=== PATIENT | male | born 1990 | race Caucasian/White ===

== ENCOUNTER 2016-07-13 22:31 | Inpatient (IN) | payer BC, OTHER ==
[2016-07-13] MEDS ORDERED: Sodium Chloride 0.9% 1,000 ML IV ONE (22:37)
[2016-07-13] MEDS ORDERED: Albuterol-Ipratrop 3 mg / 0.5 (3 ml) UD INH STA ×2 (22:38→22:39)
[2016-07-13] MEDS ORDERED: Magnesium Sulfate 1 gm in D5W 1 GM/100 ML BAG IVPB ONE ×2 (22:44→23:30)
[2016-07-13] MEDS: Magnesium Sulfate 1 gm in D5W 1 GM/100 ML BAG IV SCH ×2 (22:59→23:34)
[2016-07-13] MEDS ORDERED: Albuterol-Ipratrop 3 mg / 0.5 (3 ml) UD ONE (23:01)
[2016-07-13] MEDS ORDERED: Sodium Chloride 0.9% 1,000 ML ONE (23:14)
[2016-07-13 23:27] LABS: BASO % 0.1 % (0.0-2.0); LYMPH # 0.6 K/uL (1.0-4.3); LYMPH % 6.5 % (20.0-40.0); MEAN CELL VOLUME 86.2 fL (80.0-94.0); MEAN CORPUSCULAR HEMOGLOBIN 29.3 pg (27.0-31.0); MEAN PLATELET VOLUME 7.6 fL (7.2-11.7); MONO # 0.2 K/uL (0.0-0.8); MONO % 1.8 % (0.0-10.0); PLATELET COUNT 305 K/uL (130-400); RED CELL DISTRIBUTION WIDTH 12.9 % (11.5-14.5); WHITE BLOOD COUNT 9.1 K/uL (4.8-10.8)
--- NOTE | 2016-07-13 23:31 | C.PDOC ---
History Of Present Illness Patient BIBA for respiratory distresss, has h/o asthma, given neb treatment in the field. As per patient and EMS, he was at [facility] earlier today, given solumedrol at the time. He was worked up there, had CXR & blood work done, discharged home with Rx for prednisone. He admits to nonproductive cough, denies fever, chest pain, palpitations, abdominal pain, nausea/vomiting. He also denies h/o intubations. Time Seen by Provider: 07/13/16 22:37 Chief Complaint (Nursing): Respiratory Distress History Per: Patient, EMS History/Exam Limitations: clinical condition Onset/Duration Of Symptoms: Hrs Current Symptoms Are (Timing): Still Present Current Respiratory Medications: See Home Med List Severity: Moderate Past Medical History Reviewed: Historical Data, Nursing Documentation, Vital Signs Vital Signs: Last Vital Signs Temp 98.3 F 07/13/16 22:40 Pulse 121 H 07/14/16 03:25 Resp 22 07/14/16 03:25 BP 135/70 07/14/16 02:01 Pulse Ox 95 07/14/16 05:24 - Medical History PMH: Asthma Family History: States: No Known Family Hx - Social History Hx Tobacco Use: No Hx Alcohol Use: No Hx Substance Use: No - Immunization History Hx Tetanus Toxoid Vaccination: No Hx Influenza Vaccination: No Hx Pneumococcal Vaccination: No Review Of Systems Except As Marked, All Systems Reviewed And Found Negative. Constitutional: Negative for: Fever, Chills Cardiovascular: Negative for: Chest Pain, Palpitations Respiratory: Positive for: Cough, Shortness of Breath, Wheezing Gastrointestinal: Negative for: Nausea, Vomiting, Abdominal Pain, Diarrhea Physical Exam - Physical Exam Appears: Non-toxic, In Acute Distress (in moderate respiratory distress), Other (speaking 1-2 words at a time) Skin: Normal Color, Warm, Dry Eye(s): bilateral: Normal Inspection Oral Mucosa: Moist Chest: Symmetrical Cardiovascular: Rhythm Regular (tachycardic ) Respiratory: Accessory Muscle Use (mild), No Rales, No Rhonchi, Wheezing ( diffuse expiratory wheezing B/L) Gastrointestinal/Abdominal: Normal Exam, Bowel Sounds, Soft, No Tenderness Extremity: Normal ROM, No Pedal Edema, No Calf Tenderness Pulses: Left Dorsalis Pedis: Normal, Right Dorsalis Pedis: Normal Neurological/Psych: Oriented x3 ED Course And Treatment - Laboratory Results Result Diagrams: 07/13/16 23:13 07/13/16 23:13 ECG: Interpreted By Me, Viewed By Me (sinus tachycardis 132 bpm, normal axis, no acute ST/T wave changes) ECG Interpretation: Abnormal O2 Sat by Pulse Oximetry: 95 (RA) Pulse Ox Interpretation: Normal - Radiology CXR: Interpreted by Me, Viewed By Me (no infiltrates/effusions) Progress Note: Patient placed on monitor worker, given duoneb treatments, IV magnesium sulfate 2G, and SC Terbutaline emergently. Blood work, CXR, EKG, ABG ordered and reviewed. Reevaluation Time: 01:15 Reassessment Condition: Improved (Patient reassessed, states he is feeling better, but still wheezing with Pox of 92-93% and poor peak flow (appros 200). Will need admission.) - Physician Consult Information Physician Contacted: Roge Davison Jr. Outcome Of Conversation: Dr. Davison notified of asthma exacerbation admission to telemetry. Medicine resident also notified. Critical Care Time - Critical Care Note Total Time (in mins): 45 Documented critical care: time excludes all time spent performing seperately billable procedures. Medical Decision Making Medical Decision Making: differentialk diagnoses considered: asthma exacerbation, pneumonia, bronchitis, PE, WI/ACS, COPD, CHF Disposition - Disposition Disposition: HOSPITALIZED Disposition Time: 01:26 Condition: FAIR - Clinical Impression Clinical Impression: Exacerbation of asthma Decision To Admit - Pt Status Changed To: Hospital Disposition Of: Inpatient - Admit Certification Admit to Inpatient:: After my assessment, the patient will require hospitalization for at least two midnights. This is because of the severity of symptoms shown, intensity of services needed, and/or the medical risk in this patient being treated as an outpatient. - InPatient: Physician Admission Certification: I certify that this patient requires 2 or more midnights of care for the following reason:: see notes - . Bed Request Type: Telemetry Admitting Physician: Roge Davison Jr. Patient Diagnosis: Exacerbation of asthma
[2016-07-13 23:38] LABS: CHLORIDE 103 mmol/L (98-107)
[2016-07-13 23:39] LABS: POTASSIUM 3.9 mmol/L (3.6-5.2); SODIUM 142 mmol/L (132-148)
[2016-07-13 23:41] LABS: ALB/GLOB RATIO 1.5 (1.0-2.1); ALKALINE PHOSPHATASE 65 U/L (38-126); AST/SGOT 19 U/L (17-59); BILIRUBIN,TOTAL 0.8 mg/dL (0.2-1.3); BLOOD UREA NITROGEN 17 mg/dL (9-20); CARBON DIOXIDE 19 mmol/L (22-30); GFR AFRICAN-AMERICAN > 60; GLUCOSE,RANDOM 129 mg/dL (75-110); TOTAL PROTEIN 7.8 g/dL (6.3-8.3)
[2016-07-13 23:42] LABS: ALT/SGPT 19 U/L (21-72); CALCIUM 9.1 mg/dl (8.6-10.4)
[2016-07-13] MEDS ORDERED: Albuterol 0.083% Inhal Sol (2.5 mg/3 mL) UD IH STA (23:52)
[2016-07-14] MEDS ORDERED: Albuterol 0.083% Inhal Sol (2.5 mg/3 mL) UD IH STA (00:01)
[2016-07-14 00:25] LABS: NEUTROPHIL 91 % (50-75); TOTAL CELLS COUNTED 100
[2016-07-14] MEDS ORDERED: Albuterol 0.083% Inhal Sol (2.5 mg/3 mL) UD ONE (01:43)
[2016-07-14] MEDS: Albuterol-Ipratrop 3 mg / 0.5 (3 ml) UD IH SCH ×8 (01:48→20:10)
--- NOTE | 2016-07-14 02:28 | CP.PCM.HP ---
History of Present Illness - History of Present Illness History of Present Illness: CC: wheezing with dyspnea HPI: 25 year old male with PMHx significant for asthma presents with chief complaint of increased shortness of breath with productive cough and wheezing which first began two days ago on . Patient states that his asthma is usually well controlled requiring minimal use of his albuterol inhaler; however he has increased the frequency of use since . Patient states that his fiancee has been sick. 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 Patient states that his cough also began two days ago. The cough is productive with greenish sputum. He actually went to [facility] earlier in the day and was evaluated. There a chest xray was taken. He was administered a duoneb treatment, given steroids and monitored. Patient states that he felt well enough to leave but then the wheezing started again. Patient is accompanied by tashae bedside. He admits to fevers and nausea. He denies chills, dizziness, vomiting, diarrhea, constipation , leg pain or chest pain at this time. PMHx- Asthma PSHx- denies Fam Hx-maternal grandmother has diabetes; both grandmothers have asthma Meds:Albuterol pump, nebulizer treatment at home. Patient was administered prednisone from [facility] Social- drinks on rare occasion. He occasionally will smoke one cigarette when he drinks in the company of others. He smoked last year; denies illicit drug use; social worker school Allergies- kiwi causes itching; seasonal PMD: Dr. Evin Hanna of [facility] In the ED: a chest xray was taken; patient administered duonebs, terbutaline, mag sulfate; abg and labs taken. Present on Admission - Present on Admission Any Indicators Present on Admission: No Review of Systems - Constitutional Constitutional: absent: Anorexia, Chills - EENT Eyes: absent: Blind Spots, Blurred Vision, Change in Vision Ears: absent: Decreased Hearing, Ear Discharge Nose/Mouth/Throat: Nasal Congestion - Cardiovascular Cardiovascular: absent: Chest Pain, Chest Pain at Rest - Respiratory Respiratory: Cough, Wheezing, Change in Mucous Color. absent: Hemoptysis - Gastrointestinal Gastrointestinal: Nausea. absent: Abdominal Pain, Belching, Vomiting - Musculoskeletal Musculoskeletal: absent: Atrophy, Back Pain - Integumentary Integumentary: absent: Change in Hair, Dry Skin - Neurological Neurological: absent: Abnormal Gait, Abnormal Hearing - Psychiatric Psychiatric: absent: Anhedonia, Anxiety - Endocrine Endocrine: absent: Change in Body Appearance, Excessive Sweating - Hematologic/Lymphatic Hematologic: absent: Easy Bleeding, Easy Bruising Past Patient History - Past Medical History & Family History Past Medical History?: Yes - Past Social History Smoking Status: smokes one cigarette every once in a while with alcohol intake - CARDIAC Hx Cardiac Disorders: No - PULMONARY Hx Asthma: Yes - NEUROLOGICAL Hx Neurological Disorder: No - HEENT Hx HEENT Problems: No - RENAL Hx Chronic Kidney Disease: No - ENDOCRINE/METABOLIC Hx Endocrine Disorders: No - HEMATOLOGICAL/ONCOLOGICAL Hx Blood Disorders: No - INTEGUMENTARY Hx Dermatological Problems: No - MUSCULOSKELETAL/RHEUMATOLOGICAL Hx Musculoskeletal Disorders: No Hx Falls: No - GASTROINTESTINAL Hx Gastrointestinal Disorders: No - GENITOURINARY/GYNECOLOGICAL Hx Genitourinary Disorders: No - PSYCHIATRIC Hx Substance Use: No - SURGICAL HISTORY Hx Surgeries: No - ANESTHESIA Hx Anesthesia: No Hx Anesthesia Reactions: No Hx Malignant Hyperthermia: No Meds Allergies/Adverse Reactions: Allergies Allergy/AdvReac Type Severity Reaction Status Date / Time No Known Allergies Allergy Verified 09/04/14 16:53 Physical Exam - Constitutional Appears: Non-toxic, No Acute Distress - Head Exam Head Exam: ATRAUMATIC, NORMAL INSPECTION, NORMOCEPHALIC - Eye Exam Eye Exam: EOMI, Normal appearance, PERRL Pupil Exam: NORMAL ACCOMODATION, PERRL - ENT Exam ENT Exam: Mucous Membranes Moist, Normal Exam - Neck Exam Neck exam: Positive for: Full Rom - Respiratory Exam Respiratory Exam: Wheezes. absent: Decreased Breath Sounds, Respiratory Distress - Cardiovascular Exam Cardiovascular Exam: Tachycardia, REGULAR RHYTHM, +S1, +S2 - GI/Abdominal Exam GI & Abdominal Exam: Normal Bowel Sounds, Soft. absent: Tenderness - Extremities Exam Extremities exam: Positive for: full ROM, normal capillary refill, normal inspection, pedal pulses present - Back Exam Back exam: FULL ROM - Neurological Exam Neurological exam: Alert, CN II-XII Intact, Oriented x3, Reflexes Normal - Psychiatric Exam Psychiatric exam: Normal Affect, Normal Mood - Skin Skin Exam: Dry, Intact, Normal Color Results - Vital Signs Recent Vital Signs: Last Vital Signs Temp 98.3 F 07/13/16 22:40 Pulse 125 H 05/06/17 02:01 Resp 29 H 07/14/16 02:01 BP 135/70 07/14/16 02:01 Pulse Ox 95 07/14/16 02:17 - Labs Result Diagrams: 07/13/16 23:13 07/13/16 23:13 Assessment & Plan (1) Asthma exacerbation Assessment and Plan: Chest Xray- no apparent infiltrates noted- F/U final read Prednisone 20 mg PO BID Duonebs Oxygen PRN Oxygen saturation WNL Sinus tach on EKG likely due to albuterol administration. Otherwise stable Status: Acute (2) Cough Assessment and Plan: Robitussin DM Cont to monitor F/U AM labs F/U sputum cultures, blood cultures and gram stain Status: Acute (3) Prophylactic measure Assessment and Plan: SCDs Ambulates Status: Acute
[2016-07-14 06:29] LABS: HEMATOCRIT 41.4 % (35.0-51.0); LYMPH # 1.1 K/uL (1.0-4.3); MEAN CELL VOLUME 87.5 fL (80.0-94.0); MEAN CORPUSCULAR HEMOGLOBIN 29.4 pg (27.0-31.0); MEAN CORPUSCULAR HGB CONC 33.6 g/dL (33.0-37.0); MEAN PLATELET VOLUME 7.8 fL (7.2-11.7); MONO # 0.8 K/uL (0.0-0.8); MONO % 5.7 % (0.0-10.0); PLATELET COUNT 290 K/uL (130-400); RED CELL DISTRIBUTION WIDTH 13.1 % (11.5-14.5); WHITE BLOOD COUNT 13.3 K/uL (4.8-10.8)
[2016-07-14 06:39] LABS: CHLORIDE 106 mmol/L (98-107); SODIUM 142 mmol/L (132-148)
[2016-07-14 06:40] LABS: POTASSIUM 3.8 mmol/L (3.6-5.2)
[2016-07-14 06:42] LABS: CARBON DIOXIDE 21 mmol/L (22-30); GFR AFRICAN-AMERICAN > 60
[2016-07-14 06:43] LABS: BLOOD UREA NITROGEN 14 mg/dL (9-20); CALCIUM 8.4 mg/dl (8.6-10.4); GLUCOSE,RANDOM 124 mg/dL (75-110)
[2016-07-14 07:25] LABS: MAGNESIUM 2.4 mg/dL (1.6-2.3); PHOSPHOROUS 3.4 mg/dL (2.5-4.5)
[2016-07-14 10:53] LABS: NEUTROPHIL 87 % (50-75); TOTAL CELLS COUNTED 100
[2016-07-14 10:55] LABS: LARGE PLATELETS PRESENT
[2016-07-14] MEDS: guaiFENesin DM 100 mg-10 mg/5 ml UD PO PRN (11:40)
--- NOTE | 2016-07-14 12:42 | RAD ---
PROCEDURE: CHEST RADIOGRAPH, 1 VIEW. Portable study 22:40. HISTORY: SOB COMPARISON: 05/30/2015. FINDINGS: LUNGS: Resolution of previously identified right upper lobe infiltrate. PLEURA: No pneumothorax or pleural fluid seen. CARDIOVASCULAR: Normal. OSSEOUS STRUCTURES: No significant abnormalities. VISUALIZED UPPER ABDOMEN: Normal. OTHER FINDINGS: None. IMPRESSION: No active disease. Concordant results with the preliminary interpretation rendered by the emergency department physician procedure.
[2016-07-15] MEDS: Albuterol-Ipratrop 3 mg / 0.5 (3 ml) UD IH SCH ×5 (00:59→16:07)
[2016-07-15 08:25] VITALS: TEMP 98; O2SAT 95
[2016-07-15 08:38] LABS: BASO % 0.2 % (0.0-2.0); EOS % 0.2 % (0.0-4.0); HEMATOCRIT 45.1 % (35.0-51.0); LYMPH # 2.1 K/uL (1.0-4.3); LYMPH % 19.8 % (20.0-40.0); MEAN CORPUSCULAR HEMOGLOBIN 29.7 pg (27.0-31.0); MEAN CORPUSCULAR HGB CONC 34.2 g/dL (33.0-37.0); MEAN PLATELET VOLUME 7.6 fL (7.2-11.7); MONO # 0.6 K/uL (0.0-0.8); MONO % 5.4 % (0.0-10.0); NRBC % 0.1 % (0.0-2.0); RED CELL DISTRIBUTION WIDTH 13.3 % (11.5-14.5); WHITE BLOOD COUNT 10.7 K/uL (4.8-10.8)
[2016-07-15] MEDS: guaiFENesin DM 100 mg-10 mg/5 ml UD PO PRN (08:41)
[2016-07-15 08:46] LABS: CHLORIDE 98 mmol/L (98-107)
[2016-07-15 08:47] LABS: SODIUM 140 mmol/L (132-148)
[2016-07-15 08:49] LABS: GFR AFRICAN-AMERICAN > 60
[2016-07-15 08:50] LABS: BLOOD UREA NITROGEN 15 mg/dL (9-20); CARBON DIOXIDE 22 mmol/L (22-30); GLUCOSE,RANDOM 92 mg/dL (75-110)
[2016-07-15 18:36] VITALS: PULSE 109
[2016-07-15 18:37] VITALS: BP 120/72; RESP 16
--- NOTE | 2016-07-15 20:12 | CP.PCM.DIS ---
Provider - Provider Date of Admission: 07/14/16 01:26 Attending physician: Roge Davison Jr, MD Time Spent in preparation of Discharge (in minutes): 35 Diagnosis - Discharge Diagnosis (1) Asthma exacerbation Status: Acute Hospital Course - Lab Results Lab Results: Micro Results 07/14/16 19:00 Sputum Gram Stain - Final Most Recent Lab Values WBC 10.7 K/uL (4.8-10.8) 07/15/16 08:26 RBC 5.18 Mil/uL (4.40-5.90) 07/15/16 08:26 Hgb 15.4 g/dL (12.0-18.0) 07/15/16 08:26 Hct 45.1 % (35.0-51.0) 07/15/16 08:26 MCV 87.0 fL (80.0-94.0) 07/15/16 08:26 MCH 29.7 pg (27.0-31.0) 07/15/16 08:26 MCHC 34.2 g/dL (33.0-37.0) 07/15/16 08:26 RDW 13.3 % (11.5-14.5) 07/15/16 08:26 Plt Count 301 K/uL (130-400) 07/15/16 08:26 MPV 7.6 fL (7.2-11.7) 07/15/16 08:26 Neut % (Auto) 74.4 % (50.0-75.0) 07/15/16 08:26 Lymph % (Auto) 19.8 % (20.0-40.0) L 07/15/16 08:26 [place] % (Auto) 5.4 % (0.0-10.0) 07/15/16 08:26 Eos % (Auto) 0.2 % (0.0-4.0) 07/15/16 08:26 Baso % (Auto) 0.2 % (0.0-2.0) 07/15/16 08:26 Neut # 7.9 K/uL (1.8-7.0) H 07/15/16 08:26 Lymph # 2.1 K/uL (1.0-4.3) 07/15/16 08:26 [place] # 0.6 K/uL (0.0-0.8) 07/15/16 08:26 Eos # 0.0 K/uL (0.0-0.7) 07/15/16 08:26 Baso # 0.0 K/uL (0.0-0.2) 07/15/16 08:26 Neutrophils % (Manual) 87 % (50-75) H 07/14/16 06:19 Lymphocytes % (Manual) 8 % (20-40) L 07/14/16 06:19 Monocytes % (Manual) 5 % (0-10) 07/14/16 06:19 Toxic Granulation Present 07/14/16 06:19 Platelet Estimate Normal (NORMAL) 07/14/16 06:19 Large Platelets Present 07/14/16 06:19 Polychromasia Slight 07/14/16 06:19 Hypochromasia (manual) Slight 07/14/16 06:19 Anisocytosis (manual) Slight 07/14/16 06:19 Sodium 140 mmol/L (132-148) 07/15/16 08:26 Potassium 4.0 mmol/L (3.6-5.2) 07/15/16 08:26 Chloride 98 mmol/L (98-107) 07/15/16 08:26 Carbon Dioxide 22 mmol/L (22-30) 07/15/16 08:26 Anion Gap 24 (10-20) H 07/15/16 08:26 BUN 15 mg/dL (9-20) 07/15/16 08:26 Creatinine 0.8 MG/DL (0.8-1.5) 07/15/16 08:26 Est GFR ( Amer) > 60 07/15/16 08:26 Est GFR (Non-Af Amer) > 60 07/15/16 08:26 POC Glucose (mg/dL) 152 mg/dL (65-110) H 07/13/16 23:39 Random Glucose 92 mg/dL (75-110) 07/15/16 08:26 Calcium 9.0 mg/dl (8.6-10.4) 07/15/16 08:26 Phosphorus 3.4 mg/dL (2.5-4.5) 07/14/16 06:19 Magnesium 2.4 mg/dL (1.6-2.3) H 07/14/16 06:19 Total Bilirubin 0.8 mg/dL (0.2-1.3) 07/13/16 23:13 AST 19 U/L (17-59) 07/13/16 23:13 ALT 19 U/L (21-72) L D 07/13/16 23:13 Alkaline Phosphatase 65 U/L (38-126) 07/13/16 23:13 Total Protein 7.8 g/dL (6.3-8.3) 07/13/16 23:13 Albumin 4.7 g/dL (3.5-5.0) 07/13/16 23:13 Globulin 3.1 gm/dL (2.2-3.9) 07/13/16 23:13 Albumin/Globulin Ratio 1.5 (1.0-2.1) 07/13/16 23:13 Influenza Typ A,B (EIA) Negative for flu a/b (NEGATIVE) 07/14/16 07:15 - Hospital Course Hospital Course: 25 year old male with PMHx significant for asthma presents with chief complaint of increased shortness of breath with productive cough and wheezing which first began two days ago prior to admission. Chest Xray showed no apparent infiltrates noted. He was started on duonebs treatment, prednisone and supplemental oxygen therapy. Later on day of admission his symptoms were markedly improved. The following day, his peak flow was 260 before treatment and 300 after. He was able to walk around without becoming short of breath and was d/c later that day. This is a brief account of his stay. for more information, yvonne see his full report. - Date & Time of H&P Date of H&P: 07/15/16 Time of H&P: 07:00 Discharge Exam - Head Exam Head Exam: ATRAUMATIC, NORMAL INSPECTION, NORMOCEPHALIC - Eye Exam Eye Exam: EOMI, Normal appearance - ENT Exam ENT Exam: Mucous Membranes Moist - Neck Exam Neck exam: Full Rom - Respiratory Exam Respiratory Exam: Clear to PA & Lateral, NORMAL BREATHING PATTERN, UNREMARKABLE - GI/Abdominal Exam GI & Abdominal Exam: Normal Bowel Sounds, Soft, Unremarkable. absent: Tenderness - Back Exam Back exam: FULL ROM. absent: CVA tenderness (L), CVA tenderness (R), paraspinal tenderness, rash noted - Neurological Exam Neurological exam: Alert, CN II-XII Intact, Normal Gait, Oriented x3, Reflexes Normal - Psychiatric Exam Psychiatric exam: Normal Affect, Normal Mood - Skin Skin Exam: Dry, Intact, Normal Color, Warm Discharge Plan - Discharge Medications Prescriptions: Albuterol HFA [Ventolin HFA 90 mcg/actuation (8 g)] 1 puff IH PRN PRN #1 PRN Reason: Wheezing Fluticasone/Salmeterol 100/50 [Advair Diskus 100/50] 1 puff IH Q12 #1 puff - Follow Up Plan Condition: FAIR Disposition: HOME/ ROUTINE Instructions: Asthma (DC) Additional Instructions: Patient is medically stable for discharge. Please follow up with your primary care doctor within 1 week. Thank you for allowing us to take part in your care.
--- NOTE | 2016-07-20 13:16 | CARD ---
APPROVED REPORT EKG Measurement Heart [id number] <Conclusion> Sinus tachycardia Otherwise normal ECG
== END 2016-07-15 17:45 | disposition home or self-care (01) | DRG 203 ==
LOC: C.ER 22:31 → C.6T 07-14 01:26
PROVIDERS: ADMIT Internal Medicine; ATTEND Internal Medicine
DX: J45.901 Unspecified asthma with (acute) exacerbation (principal); R05 Cough; Z72.0 Tobacco use